=== PATIENT | male | born 1975 | race Caucasian/White ===

== ENCOUNTER 2016-11-04 12:42 | Emergency (ER) | payer OTHER ==
[~2016-11-04] VITALS: Ht 177.8 cm; Wt 100.0 kg
[2016-11-04] MEDS ORDERED: SODIUM CHLORIDE 0.9% 1,000 ML IV ONE (13:28)
[2016-11-04] MEDS ORDERED: FAMOTIDINE 20MG/2ML VIAL IV STA (13:28)
[2016-11-04] MEDS ORDERED: ONDANSETRON HCL 4MG/2ML VIAL IV STA (13:28)
[2016-11-04] MEDS ORDERED: MORPHINE SULFATE 4 MG/ML CPJ (NOT FOR IM USE) IV STA (13:28)
[2016-11-04] MEDS ORDERED: IOHEXOL-300 100 ML BOTTLE ONE (13:58)
[2016-11-04] MEDS ORDERED: SODIUM CHLORIDE 0.9% 10ML VIAL ONE (13:58)
[2016-11-04 14:20] LABS: BASOPHILS % 0.8 % (0.0-2.0); EOSINOPHILS % 0.3 % (0.0-5.0); HEMATOCRIT. 44.2 % (42.0-52.0); HEMOGLOBIN. 15.2 g/dL (14.0-18.0); LYMPHOCYTES % 15.8 % (20.0-50.0); MEAN CORPUSCULAR HEMOGLOBIN 31.1 pg (28.0-32.0); MEAN CORPUSCULAR VOLUME 90.6 fL (80.0-94.0); MEAN PLATELET VOLUME 8.4 fl (7.4-10.4); MONOCYTES % 4.6 % (2.0-8.0); NEUTROPHILS % 78.5 % (40.0-76.0); PLATELET 232 x1000/uL (130-400); RED BLOOD CELL COUNT 4.88 mill/uL (4.7-6.1); RED CELL DISTRIBUTION WIDTH 13.1 % (11.6-14.6)
[2016-11-04 14:24] LABS: CHLORIDE 107 mEq/L (98-107)
[2016-11-04 14:25] LABS: INR 1.1; PROTHROMBIN TIME 11.2 sec
[2016-11-04 14:30] LABS: CARBON DIOXIDE 24 mEq/L (21-32)
[2016-11-04] MEDS ORDERED: KETOROLAC 30MG/ML VIAL IV ONE (15:00)
[2016-11-04] MEDS ORDERED: SODIUM CHLORIDE 0.9% 2,000 ML IV NR (15:15)
[2016-11-04] MEDS ORDERED: SODIUM CHLORIDE 0.9% 1000ML BAG (SEPSIS BOLUS) IV ONE (15:15)
[2016-11-04] MEDS ORDERED: MORPHINE SULFATE 4 MG/ML CPJ (NOT FOR IM USE) IV ONE (16:00)
[2016-11-04 16:18] LABS: GLUCOSE URINE NEGATIVE (NEGATIVE); KETONES URINE TRACE (NEGATIVE); LEUKOCYTE ESTERASE URINE NEGATIVE (NEGATIVE); NITRITE URINE NEGATIVE (NEGATIVE); OCCULT BLOOD URINE NEGATIVE (NEGATIVE); PROTEIN URINE NEGATIVE (NEGATIVE); SPECIFIC GRAVITY URINE 1.035 (1.005-1.030); UROBILINOGEN URINE 0.2 E.U./dL (0.2-1.0)
[2016-11-04 16:21] LABS: CLARITY URINE CLEAR (CLEAR); COLOR URINE YELLOW (YELLOW)
[2016-11-04] MEDS ORDERED: TAMSULOSIN HCL 0.4MG SR CAPSULE PO ONE (16:30)
[2016-11-04 17:45] VITALS: BP 146/90
== END 2016-11-04 17:56 | disposition short-term general hospital (02) ==
LOC: ER 12:42
DX: N20.0 Calculus of kidney (principal); N13.30 Unspecified hydronephrosis; R10.9 Unspecified abdominal pain
CPT/HCPCS: 36415; 74177; 80053; 81003; 83605; 83690; 85025; 85610; 87040; 87086; 96361; 96374; 96375; 96376; 99285; A4216; J1885; J2270; J2405; J3490; J7030; Q9967; Z7610